=== PATIENT | male | born 1965 | race Caucasian/White ===

== ENCOUNTER 2017-06-14 16:04 | Inpatient (IN) | payer BC, OTHER ==
[~2017-06-14] VITALS: Ht 170.2 cm; Wt 71.9 kg
--- NOTE | 2017-06-14 16:15 | NUR ---
PALPITATIONS AND ARM NUMBNESS ON AND OFF X 2 WEEKS. PT IS AAO X4, AMB WITH STEADY GAIT. RR EVEN AND UNLABORED. VSS. PENDING MD MANZANO. PT PLACED IN GOWN AND MONITOR.
[2017-06-14 17:00] LABS: BASOPHILS % (AUTO) 0.3 % (0.0-2.0); EOSINOPHILS # (AUTO) 0.1 /CMM (0.0-0.7); EOSINOPHILS % (AUTO) 0.9 % (0.0-6.0); HEMATOCRIT 49 % (39-51); HEMOGLOBIN 17.1 g/dL (13.5-17.5); LYMPHOCYTES # (AUTO) 2.5 /CMM (0.8-4.8); LYMPHOCYTES % (AUTO) 31.2 % (20.0-44.0); MEAN CORPUSCULAR HEMOGLOBIN 31 PG (26.0-33.0); MEAN CORPUSCULAR HGB CONC 35 g/dl (31.0-36.0); MEAN CORPUSCULAR VOLUME 89 fL (80-96); MONOCYTES # (AUTO) 0.5 /CMM (0.1-1.30); MONOCYTES % (AUTO) 5.7 % (2.0-12.0); NEUTROPHILS # (AUTO) 4.9 /CMM (1.8-8.9); NEUTROPHILS % (AUTO) 61.9 % (43.0-81.0); PLATELET COUNT (AUTO) 280 /CMM (150-450); RED BLOOD CELL COUNT(AUTO) 5.53 MIL/uL (4.5-6.0)
[2017-06-14 17:06] LABS: CALCIUM, SERUM 9.5 mg/dL (8.5-10.1); CARBON DIOXIDE 29 mmol/L (21-32); CHLORIDE 101 mmol/L (98-107); CREATININE 1.1 mg/dL (0.6-1.3); GLUCOSE 97 mg/dL (74-106); SODIUM SERUM 137 mmol/L (136-145); UREA NITROGEN, BLOOD 20 mg/dL (7-18)
[2017-06-14] MEDS ORDERED: ASPIRIN 325 MG TABLET ONE (17:06)
[2017-06-14 17:08] LABS: INR 1.01 (0.85-1.15)
[2017-06-14] MEDS: ASPIRIN 325 MG TABLET PO ONE (17:10)
[2017-06-14 17:11] LABS: ALANINE AMINOTRANSFERASE 42 U/L (12-78); ALBUMIN 4.5 g/dL (3.4-5.0); ALKALINE PHOSPHATASE 65 U/L (46-116); ASPARTATE AMINOTRANSFERASE 25 U/L (15-37); BILIRUBIN,DIRECT 0.2 mg/dL (0.0-0.2); BILIRUBIN,TOTAL 1.8 mg/dL (0.2-1.0); TOTAL PROTEIN, SERUM 8.2 g/dL (6.4-8.2)
[2017-06-14 17:14] LABS: TROPONIN I < 0.017 ng/mL (0.00-0.056)
--- NOTE | 2017-06-14 17:43 | NUR ---
PAGED NURSING SUP FOR BED
[2017-06-14] MEDS ORDERED: IV NS 0.9% 1,000 ML IV PRN (18:00)
[2017-06-14] MEDS ORDERED: MORPHINE SULFATE INJ 2 MG/ML DISP.SYRIN IV PRN ×2 (18:00→18:45)
--- NOTE | 2017-06-14 18:38 | NUR ---
304-2 [facility] BED
--- NOTE | 2017-06-14 18:39 | NUR ---
REPORT GIVEN TO POOJA MERCADO FOR JORGE
[2017-06-14 19:30] VITALS: BP_SYST 116; BP_SYST 122; BP_SYST 135; BP_DIAS 77; BP_DIAS 83; BP_DIAS 91
--- NOTE | 2017-06-14 19:45 | NUR ---
TELE/RN NOTES RECEIVED PT IN STABLE CONDITION. A&OX4. BREATHING EVENLY ON RA. NSR. L AC #18G HL, PATENT, CDI. AMBULATING WITH STEADY GAIT. SKIN INTACT. DENIES PAIN. VERBALIZING UNDERSTANDING OF PLAN OF CARE INCLUDING BLOOD DRAWN IN AM. NO CONCERNS MADE. BED ALARM ON AND LOCKED. SR X 2 UP. SIDE TABLE AND CALL SHAW WITHIN REACH. WILL CONTINUE TO MONITOR. GIRLFRIEND AT BEDSIDE.
[2017-06-14 20:00] VITALS: BP 122/77
[2017-06-14] MEDS ORDERED: SIMVASTATIN 20 MG TABLET PO SCH (22:00)
[2017-06-14] MEDS: SIMVASTATIN 20 MG TABLET PO SCH (22:02)
[2017-06-15] VITALS: BP 105/62
[2017-06-15] MEDS: IV NS 0.9% 1,000 ML IV PRN ×2 (02:37→18:09)
[2017-06-15 04:00] VITALS: BP 118/64
--- NOTE | 2017-06-15 06:40 | NUR ---
TELE/RN NOTES PT STABLE. A&OX4. NO SOB ON RA. SR 60. C/O FLUSHING FROM EARS TO FACE. PALPITATION THAT WENT AWAY QUICKLY. DENIES CHEST PAIN. NO DISTRESS NOTED. IVF IN PROGRESS. VOIDING WELL. C/O OF DIFFICULTY SLEEPING. UANBLE TO GIVE AMBIEN SINCE IT WAS AROUND 3AM. ALL NEEDS MET. CALL SHAW WITHIN REACH. WILL ENDORSE TO AM SHIFT FOR CONTINUITY OF CARE.
[2017-06-15 06:44] LABS: BASOPHILS % (AUTO) 0.4 % (0.0-2.0); EOSINOPHILS # (AUTO) 0.1 /CMM (0.0-0.7); EOSINOPHILS % (AUTO) 1.2 % (0.0-6.0); HEMATOCRIT 45 % (39-51); HEMOGLOBIN 15.5 g/dL (13.5-17.5); LYMPHOCYTES % (AUTO) 27.3 % (20.0-44.0); MEAN CORPUSCULAR HEMOGLOBIN 31 PG (26.0-33.0); MEAN CORPUSCULAR HGB CONC 35 g/dl (31.0-36.0); MEAN CORPUSCULAR VOLUME 90 fL (80-96); MONOCYTES # (AUTO) 0.5 /CMM (0.1-1.30); MONOCYTES % (AUTO) 6.3 % (2.0-12.0); NEUTROPHILS # (AUTO) 4.8 /CMM (1.8-8.9); NEUTROPHILS % (AUTO) 64.8 % (43.0-81.0); PLATELET COUNT (AUTO) 242 /CMM (150-450); RDW COEFFICIENT OF VARIATION 12.9 (11.5-15.0); RED BLOOD CELL COUNT(AUTO) 4.96 MIL/uL (4.5-6.0); WHITE BLOOD COUNT (AUTO) 7.5 K/uL (4.3-11.0)
[2017-06-15 06:54] LABS: CALCIUM, SERUM 8.6 mg/dL (8.5-10.1); CREATININE 1.1 mg/dL (0.6-1.3); PHOSPHORUS 3.7 mg/dL (2.5-4.9); POTASSIUM 4.1 mmol/L (3.5-5.1)
[2017-06-15 06:58] LABS: INR 1.03 (0.87-1.13)
[2017-06-15 07:07] VITALS: BP 120/77
--- NOTE | 2017-06-15 07:30 | NUR ---
RECEIVED PT. ALERT AND ORIENTED X 4.VS STABLE.DR. SANCHEZ IN TO SEE PT. NO COMPLAINTS AT THIS TIME.
[2017-06-15 07:41] LABS: APPEARANCE,URINE CLEAR (CLEAR); BILIRUBIN,URINE NEGATIVE (NEGATIVE); BLOOD, URINE NEGATIVE Ery/uL (NEGATIVE); COLOR,URINE YELLOW (YELLOW); KETONES,URINE NEGATIVE (NEGATIVE); LEUKOCYTE ESTERASE ,URINE NEGATIVE (NEGATIVE); NITRITE, URINE NEGATIVE (NEGATIVE); PROTEIN,URINE NEGATIVE (NEGATIVE); UGLUCOSE NEGATIVE (NEGATIVE); UROBILINOGEN,URINE 0.2 EU/dL (0.2)
[2017-06-15] MEDS: PANTOPRAZOLE 40 MG TABLET.DR PO SCH (08:55)
[2017-06-15] MEDS ORDERED: PANTOPRAZOLE 40 MG TABLET.DR PO SCH (09:00)
[2017-06-15 09:17] LABS: TROPONIN I < 0.017 ng/mL (0.00-0.056)
[2017-06-15 09:23] LABS: THYROID STIMULATING HORMONE 1.867 uIU/mL (0.358-3.74)
[2017-06-15 10:30] LABS: ALANINE AMINOTRANSFERASE 41 U/L (12-78); ALBUMIN 3.7 g/dL (3.4-5.0); ALKALINE PHOSPHATASE 50 U/L (46-116); ASPARTATE AMINOTRANSFERASE 29 U/L (15-37); BILIRUBIN,DIRECT 0.2 mg/dL (0.0-0.2); BILIRUBIN,TOTAL 1.7 mg/dL (0.2-1.0); TOTAL PROTEIN, SERUM 7.1 g/dL (6.4-8.2)
--- NOTE | 2017-06-15 10:34 | NUR ---
texted dr. kolby montanez for mri approval.
--- NOTE | 2017-06-15 10:35 | NUR ---
TEXTED DR. CANALES FOR MRI APPROVAL.
--- NOTE | 2017-06-15 11:20 | NUR ---
RECEIVED ORDERS FOR C-SPINE MRI CHECKLIST DONE.INSURANCE CLERK INFORMED.
--- NOTE | 2017-06-15 14:00 | NUR ---
MS RN NOTES Received patient in bed alert, oriented.No acute distress noted , no sob noted, breathing unlabored. IV access patent and intact, No redness or swelling.Safety measures in place. Will continue to monitor accordingly.
[2017-06-15 16:00] VITALS: BP 127/71
--- NOTE | 2017-06-15 18:30 | NUR ---
MS RN NOTES Received patient in bed alert, Oriented. at bedside. No acute distress noted , no sob noted, breathing unlabored. IV access patent and intact, No redness or swelling.Safety measures in place. Needs attended. Due medication given, no ASE noted. Will continue to monitor accordingly.Will endorse to speech lang path for continuity of care.
--- NOTE | 2017-06-15 19:30 | NUR ---
RN OPENING NOTES PATIENT IS IN BED, ALERT AND ORIENTED X4. FAMILY PRESENT AT BEDSIDE. NO C/O PAIN OR DISCOMFORT AT THIS TIME. RESPIRATIONS EVEN AND UNLABORED. NO SOB NOTED. IV ACCESS OMN LEFT AC 18 G PATENT AND INTACT, INFUSING NS AT 100 ML/HR, NO REDNESS OR INFILTRATION NOTED. BED IN LOW AND LOCKED POSITION, SIDE RAILS X2. CALL LIGHT WITHIN EASY REACH. WILL CONTINUE TO MONITOR AND ASSESS DURING THE SHIFT.
[2017-06-15 20:00] VITALS: BP 116/70
[2017-06-15] MEDS: SIMVASTATIN 20 MG TABLET PO SCH (21:20)
[2017-06-16] MEDS: IV NS 0.9% 1,000 ML IV PRN (03:56)
[2017-06-16 06:41] LABS: BASOPHILS % (AUTO) 0.4 % (0.0-2.0); EOSINOPHILS # (AUTO) 0.1 /CMM (0.0-0.7); EOSINOPHILS % (AUTO) 1.7 % (0.0-6.0); HEMATOCRIT 43 % (39-51); HEMOGLOBIN 14.9 g/dL (13.5-17.5); LYMPHOCYTES % (AUTO) 31.1 % (20.0-44.0); MEAN CORPUSCULAR HEMOGLOBIN 32 PG (26.0-33.0); MEAN CORPUSCULAR HGB CONC 35 g/dl (31.0-36.0); MEAN CORPUSCULAR VOLUME 91 fL (80-96); MONOCYTES # (AUTO) 0.4 /CMM (0.1-1.30); MONOCYTES % (AUTO) 6.4 % (2.0-12.0); NEUTROPHILS # (AUTO) 3.8 /CMM (1.8-8.9); NEUTROPHILS % (AUTO) 60.4 % (43.0-81.0); PLATELET COUNT (AUTO) 221 /CMM (150-450); RDW COEFFICIENT OF VARIATION 12.8 (11.5-15.0); RED BLOOD CELL COUNT(AUTO) 4.72 MIL/uL (4.5-6.0); WHITE BLOOD COUNT (AUTO) 6.3 K/uL (4.3-11.0)
--- NOTE | 2017-06-16 06:59 | NUR ---
RN CLOSING NOTES PATIENT IS IN BED, ALERT AND ORIENTED X4. NO C/O PAIN OR DISCOMFORT AT THIS TIME. RESPIRATIONS EVEN AND UNLABORED. NO SOB NOTED. IV ACCESS OMN LEFT AC 18 G PATENT AND INTACT, INFUSING NS AT 100 ML/HR, NO REDNESS OR INFILTRATION NOTED. ALL NEEDS ARE MET AND MEDICATIONS GIVEN PER MD ORDER. BED IN LOW AND LOCKED POSITION, SIDE RAILS X2. CALL LIGHT WITHIN EASY REACH. WILL ENDORSE TO RN DAY SHIFT FOR JORGE.
[2017-06-16 07:02] LABS: CALCIUM, SERUM 8.4 mg/dL (8.5-10.1); MAGNESIUM 1.9 mg/dL (1.8-2.4); PHOSPHORUS 3.6 mg/dL (2.5-4.9); POTASSIUM 4.3 mmol/L (3.5-5.1)
--- NOTE | 2017-06-16 07:38 | NUR ---
MS/RN OPENING NOTE PATIENT IN BED IN STABLE CONDITION. A/O X 4. NO SIGNS OF ACUTE DISTRESS. NO COMPLAIN OF PAIN OR DISCOMFORT. ALL NEEDS ATTENDED TO. CALL LIGHT WITHIN REACH. WILL CONTINUE TO MONITOR TO ENSURE SAFETY.
[2017-06-16] MEDS: PANTOPRAZOLE 40 MG TABLET.DR PO SCH (08:24)
[2017-06-16] MEDS ORDERED: METH4TAB3 PO (10:39)
--- NOTE | 2017-06-16 12:20 | NUR ---
MS/CUSTOMS OFFICER PATIENT DISCHARGE HOME IN STABLE CONDITION. A/O X 4. NO SIGNS OF ACUTE DISTRESS. NO COMPLAIN OF PAIN OR DISCOMFORT. DISCHARGE INSTRUCTIONS AND EDUCATION PROVIDED. ALSO MADE AWARE TO FOLLOW UP WITH PRIMARY WITHIN 3 DAYS, FOLLOW UP WITH DR KRISHNAN (NEUROSURGEON) WITH 2-3 WEEKS, FOLLOW UP WITH DR SANCHEZ WITHIN [address]'S CONTACT INFORMATION PROVIDED TO SCHEDULE APPOINTMENT. PATIENT VERBALIZED UNDERSTANDING OF TEACHINGS. NAME BAND AND IV LINE REMOVED. ALL NEEDS ATTENDED TO. LEFT VIA PRIVATE CAR IN STABLE CONDITION ACCOMPANIED BY FRIEND.
== END 2017-06-16 12:30 | disposition home or self-care (01) | DRG 552 ==
LOC: ER 16:08 → TELE 18:52 → MED 06-15 09:42
PROVIDERS: ADMIT Internal Medicine; ATTEND Internal Medicine
DX: M50.13 Cervical disc disorder with radiculopathy, cervicothoracic region (principal); M48.02 Spinal stenosis, cervical region; R79.89 Other specified abnormal findings of blood chemistry; X50.9XXA Other and unspecified overexertion or strenuous movements or postures, initial encounter; M89.48 Other hypertrophic osteoarthropathy, other site; M25.78 Osteophyte, vertebrae; E80.6 Other disorders of bilirubin metabolism
CPT/HCPCS: 36415; 70450-TC; 71045-TC; 72125-TC; 72141-TC; 80048-TC; 80061-TC; 80076-TC; 80305; 81000-TC; 82306; 83735-TC; 84100-TC; 84439-TC; 84443-TC; 84484-TC; 85025-TC; 85610-TC; 85652-TC; 85730-TC; 87081-TC; 93307-TC; A4606; J7030; Z7610